=== PATIENT | female | born 1960 | race Two or more races ===

== ENCOUNTER 2018-02-01 12:50 | Outpatient (CLI) | payer OTHER ==
[~2018-02-01 12:50] MED LIST: FLEXERIL5 MG; NEXIUM20 MG/PACK; VOLTAREN-XR100 MG
== END 2018-02-01 13:07 | disposition home or self-care (01) ==
LOC: MAMO-SONO 12:50
DX: Z12.31 Encounter for screening mammogram for malignant neoplasm of breast (principal); N60.11 Diffuse cystic mastopathy of right breast; N60.12 Diffuse cystic mastopathy of left breast; R10.2 Pelvic and perineal pain

== ENCOUNTER 2018-02-06 11:10 | Emergency (ER) | payer OTHER ==
[~2018-02-06] VITALS: Ht 165.1 cm; Wt 58.1 kg
== END 2018-02-06 15:50 | disposition home or self-care (01) ==
LOC: ER 11:10
DX: K62.5 Hemorrhage of anus and rectum (principal)

== ENCOUNTER → 2019-02-13 | Outpatient (CLI) | payer OTHER | END | disposition home or self-care (01) | LOC: MAMO-SONO 14:15 | DX: Z12.31 Encounter for screening mammogram for malignant neoplasm of breast (principal); N60.11 Diffuse cystic mastopathy of right breast; N60.12 Diffuse cystic mastopathy of left breast ==

== ENCOUNTER 2019-03-01 10:14 | Outpatient (CLI) | payer OTHER | END 2019-03-01 10:15 | disposition home or self-care (01) | LOC: NUCLEAR 10:14 | DX: M81.0 Age-related osteoporosis without current pathological fracture (principal) ==

== ENCOUNTER 2019-03-11 13:41 | Outpatient (CLI) | payer OTHER ==
[~2019-03-11] VITALS: Ht 152.4 cm; Wt 63.0 kg
== END 2019-03-11 14:00 | disposition home or self-care (01) ==
LOC: OFIC 805 13:41
DX: J32.8 Other chronic sinusitis (principal); R09.81 Nasal congestion; J34.89 Other specified disorders of nose and nasal sinuses

== ENCOUNTER 2021-01-29 11:10 | Outpatient (CLI) | payer OTHER | END 2021-01-29 12:47 | disposition home or self-care (01) | LOC: MAMO-SONO 11:10 | DX: N60.11 Diffuse cystic mastopathy of right breast (principal); N60.12 Diffuse cystic mastopathy of left breast; N60.19 Diffuse cystic mastopathy of unspecified breast; R10.2 Pelvic and perineal pain ==

== ENCOUNTER → 2021-03-02 14:25 | Outpatient (CLI) | payer OTHER | END | disposition home or self-care (01) | LOC: NUCLEAR 14:15 | PROVIDERS: ATTEND Specialist | DX: M81.0 Age-related osteoporosis without current pathological fracture (principal) ==

== ENCOUNTER 2021-09-27 10:25 | Outpatient (CLI) | payer OTHER | END 2021-09-27 10:41 | disposition home or self-care (01) | LOC: LAB 10:25 | PROVIDERS: ATTEND Radiology Diagnostic Radiology | DX: M99.12 Subluxation complex (vertebral) of thoracic region (principal) ==

== ENCOUNTER 2021-09-27 10:53 | Outpatient (CLI) | payer OTHER | END 2021-09-27 10:54 | disposition home or self-care (01) | LOC: MRI 10:53 | PROVIDERS: ATTEND Anesthesiology | DX: S32.002A Unstable burst fracture of unspecified lumbar vertebra, initial encounter for closed fracture (principal); M54.17 Radiculopathy, lumbosacral region; M54.12 Radiculopathy, cervical region | CPT/HCPCS: 72156; 72157 ==

== ENCOUNTER 2022-02-15 13:14 | Outpatient (CLI) | payer OTHER | END 2022-02-15 13:29 | disposition home or self-care (01) | LOC: RAD 13:14 | PROVIDERS: ATTEND Obstetrics & Gynecology | DX: Z12.31 Encounter for screening mammogram for malignant neoplasm of breast (principal); N60.11 Diffuse cystic mastopathy of right breast; N60.12 Diffuse cystic mastopathy of left breast; M54.2 Cervicalgia; M54.50 Low back pain, unspecified ==

== ENCOUNTER 2022-03-22 15:02 | Outpatient (CLI) | payer OTHER | END 2022-03-22 15:12 | disposition home or self-care (01) | LOC: RAD 15:02 | PROVIDERS: ATTEND Chiropractor | DX: M54.2 Cervicalgia (principal); M54.6 Pain in thoracic spine; M54.59 Other low back pain ==

== ENCOUNTER 2022-05-16 13:56 | Outpatient (CLI) | payer OTHER | END 2022-05-16 14:14 | disposition home or self-care (01) | LOC: MRI 13:56 | PROVIDERS: ATTEND Orthopaedic Surgery Orthopaedic Surgery of the Spine | DX: M25.511 Pain in right shoulder (principal); G99.2 Myelopathy in diseases classified elsewhere; M48.04 Spinal stenosis, thoracic region | CPT/HCPCS: 72141; 72146; 73218 ==

== ENCOUNTER 2022-08-18 12:29 | Outpatient (CLI) | payer OTHER | END 2022-08-18 12:37 | disposition home or self-care (01) | LOC: TOM 12:29 | PROVIDERS: ATTEND Orthopaedic Surgery Orthopaedic Surgery of the Spine | DX: Z98.890 Other specified postprocedural states (principal) ==

== ENCOUNTER 2022-09-05 14:08 | Outpatient (CLI) | payer OTHER | END 2022-09-05 14:33 | disposition home or self-care (01) | LOC: RAD 14:08 | PROVIDERS: ATTEND Chiropractor | DX: M50.13 Cervical disc disorder with radiculopathy, cervicothoracic region (principal); M51.15 Intervertebral disc disorders with radiculopathy, thoracolumbar region ==

== ENCOUNTER 2022-11-15 12:47 | Outpatient (CLI) | payer OTHER | END 2022-11-15 12:50 | disposition home or self-care (01) | LOC: MRI 12:47 | PROVIDERS: ATTEND Physical Medicine & Rehabilitation Pain Medicine | DX: M54.17 Radiculopathy, lumbosacral region (principal); M46.1 Sacroiliitis, not elsewhere classified | CPT/HCPCS: 72148 ==

== ENCOUNTER 2023-02-20 12:41 | Outpatient (CLI) | payer OTHER | END 2023-02-20 12:52 | disposition home or self-care (01) | LOC: MAMO-SONO 12:41 | PROVIDERS: ATTEND Obstetrics & Gynecology | DX: Z12.31 Encounter for screening mammogram for malignant neoplasm of breast (principal); N60.11 Diffuse cystic mastopathy of right breast; N60.12 Diffuse cystic mastopathy of left breast ==

== ENCOUNTER 2023-03-03 13:11 | Outpatient (CLI) | payer OTHER | END 2023-03-03 13:12 | disposition home or self-care (01) | LOC: NUCLEAR 13:11 | PROVIDERS: ATTEND Obstetrics & Gynecology | DX: M81.0 Age-related osteoporosis without current pathological fracture (principal) ==

== ENCOUNTER 2023-07-11 08:42 | Outpatient (CLI) | payer OTHER ==
[2023-07-11 10:49] LABS: HEMATOCRIT 39.9 % (36.0-45.00); HEMOGLOBIN 13.6 g/dL (12.0-15.00); MEAN CELL VOLUME 97.9 fL (80.00-100.00); MEAN CORPUSCULAR HEMOGLOBIN 33.5 pg (27.00-32.0); MEAN CORPUSCULAR HGB CONC 34.2 g/dl (32.0-36.0); PLATELET COUNT 433 K/uL (150-450); RED BLOOD COUNT 4.07 M/uL (4.00-6.00); RED CELL DISTRIBUTION WIDTH 13.2 % (11.5-14.5)
[2023-07-11 12:11] LABS: % SATURACION 31.7 % (15-50); BILIRUBIN TOTAL 0.45 mg/dL (0.3-1.2); CALCIUM 9.4 mg/dL (8.5-10.1); CREATININE SERUM 0.7 mg/dL (0.55-1.02); FERRITIN 104.3 NG/ML (8-252); GFR 84.51; GLOBULINA 2.7 G/DL (2.4-3.5); POTASSIUM 3.64 mEq/L (3.5-5.1); T4 FREE 1.07 NG/ML (0.76-1.46); TOTAL PROTEIN 6.7 gm/dL (6.4-8.2); TSH 2.3 uIU/mL (0.358-3.74)
[2023-07-11 15:05] LABS: MANUAL PLATELET COUNT 544
[2023-07-11 15:07] LABS: PLATELET ESTIMATE INCREASED (NORMAL)
== END 2023-07-11 08:43 | disposition home or self-care (01) ==
LOC: LAB 08:42
PROVIDERS: ATTEND Internal Medicine Hematology & Oncology
DX: D50.8 Other iron deficiency anemias (principal); R79.9 Abnormal finding of blood chemistry, unspecified; I10 Essential (primary) hypertension; R74.02 Elevation of levels of lactic acid dehydrogenase [LDH]; K76.89 Other specified diseases of liver; D63.8 Anemia in other chronic diseases classified elsewhere; D55.0 Anemia due to glucose-6-phosphate dehydrogenase [G6PD] deficiency; D51.1 Vitamin B12 deficiency anemia due to selective vitamin B12 malabsorption with proteinuria; D51.0 Vitamin B12 deficiency anemia due to intrinsic factor deficiency; E03.8 Other specified hypothyroidism; E06.3 Autoimmune thyroiditis; C50.919 Malignant neoplasm of unspecified site of unspecified female breast; R97.8 Other abnormal tumor markers; C56.9 Malignant neoplasm of unspecified ovary; R97.1 Elevated cancer antigen 125 [CA 125]; R97.0 Elevated carcinoembryonic antigen [CEA]; D51.3 Other dietary vitamin B12 deficiency anemia; M50.00 Cervical disc disorder with myelopathy, unspecified cervical region; Z88.3 Allergy status to other anti-infective agents

== ENCOUNTER 2023-07-11 10:00 | Outpatient (CLI) | payer OTHER | END 2023-07-11 10:05 | disposition home or self-care (01) | LOC: SONOGRAMA 10:00 | PROVIDERS: ATTEND Internal Medicine Hematology & Oncology | DX: E04.2 Nontoxic multinodular goiter (principal); R59.0 Localized enlarged lymph nodes; D51.3 Other dietary vitamin B12 deficiency anemia; M50.00 Cervical disc disorder with myelopathy, unspecified cervical region; Z88.3 Allergy status to other anti-infective agents ==

== ENCOUNTER 2023-08-23 13:05 | Outpatient (CLI) | payer OTHER ==
[2023-08-23 14:09] LABS: CREATININE SERUM 0.71 mg/dL (0.55-1.02)
== END 2023-08-23 13:07 | disposition home or self-care (01) ==
LOC: LAB 13:05
PROVIDERS: ATTEND Radiology Diagnostic Radiology
DX: D51.3 Other dietary vitamin B12 deficiency anemia (principal); M50.00 Cervical disc disorder with myelopathy, unspecified cervical region; Z88.3 Allergy status to other anti-infective agents

== ENCOUNTER 2023-08-24 11:00 | Outpatient (CLI) | payer OTHER | END 2023-08-24 11:07 | disposition home or self-care (01) | LOC: TOM 11:00 | PROVIDERS: ATTEND Internal Medicine Hematology & Oncology | DX: D51.3 Other dietary vitamin B12 deficiency anemia (principal); M50.00 Cervical disc disorder with myelopathy, unspecified cervical region; Z88.3 Allergy status to other anti-infective agents ==

== ENCOUNTER 2024-04-12 10:31 | Outpatient (CLI) | payer OTHER ==
[2024-04-12 12:52] LABS: HEMATOCRIT 38.4 % (36.0-45.00); MEAN CELL VOLUME 95.4 fL (80.00-100.00); MEAN CORPUSCULAR HEMOGLOBIN 32.3 pg (27.00-32.0); MEAN CORPUSCULAR HGB CONC 33.9 g/dl (32.0-36.0); PLATELET COUNT 397 K/uL (150-450); RED BLOOD COUNT 4.03 M/uL (4.00-6.00); RED CELL DISTRIBUTION WIDTH 13.3 % (11.5-14.5)
[2024-04-12 12:54] LABS: ERYTHROCYTE SEDIMENTATION RATE 8 mm/hr
[2024-04-12 14:17] LABS: ALBUMIN 3.9 gm/dL (3.4-5.0); ALKALINE PHOSPHATASE 92 U/L (50-136); ALT/SGPT 16 U/L (12-78); ANION GAP 9 (10.0-20.0); AST/SGOT 12 U/L (15-37); BILIRUBIN TOTAL 0.28 mg/dL (0.3-1.2); BLOOD UREA NITROGEN 23 mg/dL (7-18); BUN CREA RATIO 35 (7.0-25.0); CALCIUM 9.3 mg/dL (8.5-10.1); CARBON DIOXIDE 28 mEq/L (21-32); CHLORIDE 110 mmol/L (98-107); CREATININE SERUM 0.65 mg/dL (0.55-1.02); GFR 91.76; GLOBULINA 2.7 G/DL (2.4-3.5); GLUCOSE FASTING 88 mg/dL (65-100); GLUCOSE RANDOM 88 mg/dL (65-100); HDL 69 mg/dl (40-60); OSMOLALITY SERUM 288 MOSM/KG (275-295); PHOSPHOKINASE CREATININE 68 U/L (26-192); POTASSIUM 4.31 mEq/L (3.5-5.1); SODIUM 143 mmol/L (136-145); T4 FREE 0.86 NG/ML (0.76-1.46); TOTAL PROTEIN 6.6 gm/dL (6.4-8.2); TRIGLYCERIDES 102 mg/dL (0-150); VLDL 20 (0-39)
[2024-04-12 14:20] LABS: C-REACTIVE PROTEIN < 0.29 MG/DL (0.00-0.29); CHOL HDL RATIO 4.1 (0-5.0); CHOLESTEROL 280 mg/dL (0-200); LDL 191 mg/dl (0-130)
== END 2024-04-12 10:32 | disposition home or self-care (01) ==
LOC: LAB 10:31
PROVIDERS: ATTEND Neuromusculoskeletal Medicine & OMM
DX: E78.00 Pure hypercholesterolemia, unspecified (principal); E78.1 Pure hyperglyceridemia; G62.9 Polyneuropathy, unspecified; R20.2 Paresthesia of skin; E03.9 Hypothyroidism, unspecified; R73.9 Hyperglycemia, unspecified; R73.01 Impaired fasting glucose; E11.9 Type 2 diabetes mellitus without complications; M62.9 Disorder of muscle, unspecified

== ENCOUNTER 2024-05-08 13:58 | Outpatient (CLI) | payer OTHER | END 2024-05-08 14:04 | disposition home or self-care (01) | LOC: RAD 13:58 | PROVIDERS: ATTEND Physical Medicine & Rehabilitation Pain Medicine | DX: M54.17 Radiculopathy, lumbosacral region (principal) ==

== ENCOUNTER 2024-11-12 13:06 | Outpatient (CLI) | payer OTHER ==
[2024-11-12 14:29] LABS: CREATININE SERUM 0.59 mg/dL (0.55-1.02); GFR 102.29
== END 2024-11-12 13:13 | disposition home or self-care (01) ==
LOC: LAB 13:06
PROVIDERS: ATTEND Radiology Diagnostic Radiology
DX: D50.8 Other iron deficiency anemias (principal)

== ENCOUNTER 2024-11-14 11:52 | Outpatient (CLI) | payer OTHER | END 2024-11-14 12:05 | disposition home or self-care (01) | LOC: MRI 11:52 | DX: R42 Dizziness and giddiness (principal); H93.3X9 Disorders of unspecified acoustic nerve; M54.10 Radiculopathy, site unspecified; M54.14 Radiculopathy, thoracic region; J32.0 Chronic maxillary sinusitis | CPT/HCPCS: 70553 ==

== ENCOUNTER → 2024-11-16 08:54 | Outpatient (CLI) | payer OTHER ==
[2024-11-16 09:36] LABS: HEMATOCRIT 40.9 % (36.0-45.00); MEAN CELL VOLUME 96.1 fL (80.00-100.00); MEAN CORPUSCULAR HEMOGLOBIN 32.8 pg (27.00-32.0); MEAN CORPUSCULAR HGB CONC 34.2 g/dl (32.0-36.0); PLATELET COUNT 410 K/uL (150-450); RED BLOOD COUNT 4.26 M/uL (4.00-6.00); RED CELL DISTRIBUTION WIDTH 13.4 % (11.5-14.5)
[2024-11-16 11:53] LABS: BILIRUBIN TOTAL 0.45 mg/dL (0.3-1.2); CALCIUM 9.6 mg/dL (8.5-10.1); CREATININE SERUM 0.74 mg/dL (0.55-1.02); FERRITIN 64.2 NG/ML (8-252); GFR 78.76; GLOBULINA 3.1 G/DL (2.4-3.5); POTASSIUM 4.48 mEq/L (3.5-5.1); TOTAL PROTEIN 7.1 gm/dL (6.4-8.2)
[2024-11-16 17:50] LABS: % SATURACION 28.9 % (15-50)
[2024-11-18 11:22] LABS: FOLIC ACID 13.53 ng/ml (4.78-20)
[2024-11-18 14:46] LABS: MANUAL PLATELET COUNT 554
[2024-11-18 14:47] LABS: PLATELET ESTIMATE INCREASED (NORMAL)
== END | disposition home or self-care (01) ==
LOC: LAB 08:54
PROVIDERS: ATTEND Internal Medicine Hematology & Oncology
DX: D51.3 Other dietary vitamin B12 deficiency anemia (principal); D72.818 Other decreased white blood cell count; M50.00 Cervical disc disorder with myelopathy, unspecified cervical region; R10.10 Upper abdominal pain, unspecified; R10.30 Lower abdominal pain, unspecified; K63.89 Other specified diseases of intestine; D50.8 Other iron deficiency anemias; R79.9 Abnormal finding of blood chemistry, unspecified; I10 Essential (primary) hypertension; R74.02 Elevation of levels of lactic acid dehydrogenase [LDH]; K76.89 Other specified diseases of liver; D51.1 Vitamin B12 deficiency anemia due to selective vitamin B12 malabsorption with proteinuria; D51.0 Vitamin B12 deficiency anemia due to intrinsic factor deficiency

== ENCOUNTER 2024-12-03 10:17 | Outpatient (CLI) | payer OTHER | END 2024-12-03 10:20 | disposition home or self-care (01) | LOC: RAD 10:17 | PROVIDERS: ATTEND Orthopaedic Surgery Orthopaedic Surgery of the Spine | DX: M25.551 Pain in right hip (principal); M25.561 Pain in right knee; M25.562 Pain in left knee ==

== ENCOUNTER 2025-02-14 14:42 | Emergency (ER) | payer OTHER ==
[~2025-02-14] VITALS: Ht 165.1 cm; Wt 63.5 kg
[2025-02-14 18:10] LABS: BASO % 0.4 % (0.1-1.2); EOS # 0.09 (0.04-0.54); EOS % 0.8 % (0.7-7.0); HEMATOCRIT 45.2 % (34.1-44.9); HEMOGLOBIN 15.4 g/dL (11.2-15.7); LYMPH % 25.9 % (19.3-53.1); MEAN CORPUSCULAR HEMOGLOBIN 32.2 pg (25.6-32.2); MONO # 0.61 (0.24-0.82); MONO % 5.5 % (4.7-12.5); NEUT # 7.52 (1.56-6.13); NEUT % 67.2 % (34.0-71.1); PLATELET COUNT 378 K/uL (163-369); RED BLOOD COUNT 4.78 M/uL (3.93-5.22); RED CELL DISTRIBUTION WIDTH 12.8 % (11.6-14.4)
[2025-02-14 18:35] LABS: ALBUMIN 4.5 gm/dL (3.4-5.0); BILIRUBIN TOTAL 0.37 mg/dL (0.3-1.2); CALCIUM 10.5 mg/dL (8.5-10.1); CREATININE SERUM 0.74 mg/dL (0.55-1.02); GFR 78.76; GLOBULINA 3.8 G/DL (2.4-3.5); POTASSIUM 4.46 mEq/L (3.5-5.1); TOTAL PROTEIN 8.3 gm/dL (6.4-8.2); proBNP 23 pg/mL (0-106.6)
[2025-02-14 18:41] LABS: TROPONIN I hs < 3.0 PG/ML (42.2-82.3)
[2025-02-14] MEDS ORDERED: HYDROXYZINE HCL50 MG PO (19:22)
== END 2025-02-14 22:09 | disposition home or self-care (01) ==
LOC: ER 14:42
PROVIDERS: Preventive Medicine Public Health & General Preventive Medicine
DX: F41.9 Anxiety disorder, unspecified (principal); Z88.8 Allergy status to other drugs, medicaments and biological substances

== ENCOUNTER 2025-03-11 09:46 | Outpatient (CLI) | payer OTHER ==
[~2025-03-11 09:46] MED LIST changes: +HYDROXYZINE HCL50 MG PO
== END 2025-03-11 09:48 | disposition home or self-care (01) ==
LOC: NUCLEAR 09:46
PROVIDERS: ATTEND Physical Medicine & Rehabilitation
DX: M81.0 Age-related osteoporosis without current pathological fracture (principal); M79.622 Pain in left upper arm

== ENCOUNTER 2025-03-11 13:40 | Outpatient (CLI) | payer OTHER | END 2025-03-11 13:45 | disposition home or self-care (01) | LOC: MAMO-SONO 13:40 | PROVIDERS: ATTEND Obstetrics & Gynecology | DX: N60.11 Diffuse cystic mastopathy of right breast (principal); N60.12 Diffuse cystic mastopathy of left breast ==

== ENCOUNTER 2025-03-19 10:34 | Outpatient (CLI) | payer OTHER | END 2025-03-19 10:35 | disposition home or self-care (01) | LOC: NUCLEAR 10:34 | PROVIDERS: ATTEND Physical Medicine & Rehabilitation | DX: M79.602 Pain in left arm (principal) ==